=== PATIENT | female | born 1985 | race Caucasian/White ===

== ENCOUNTER → 2016-10-15 | Outpatient (CLI) | payer OTHER ==
[2016-10-15 12:19] LABS: Anisocytosis Moderate; CH 25.3; CHCM 31.1; HCT 34.7 % (34.0-46.0); HDW 2.98; HGB 10.6 gm/dL (11.4-16.0); Hypochromasia Moderate; MCHC 30.6 g/dL (31.0-37.0); Mean Platelet Volume 8.3; Microcytosis Slight; RBC 4.23 m/uL (3.80-5.40); RDW 20.2 % (11.5-15.5); WBC 7.6 k/uL (3.8-10.6)
== END | disposition home or self-care (01) ==
LOC: LABWHC1 09:00
PROVIDERS: ATTEND Obstetrics & Gynecology
DX: Z34.92 Encounter for supervision of normal pregnancy, unspecified, second trimester (principal); Z3A.00 Weeks of gestation of pregnancy not specified
CPT/HCPCS: 36415; 82950; 85027

== ENCOUNTER → 2016-12-17 | Outpatient (CLI) | payer OTHER ==
--- NOTE | 2016-12-17 12:06 | US ---
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 4 oz. WEIGHT PERCENTAGE BASED ON ESTABLISHED DATE: 80.5% HC/AC: 0.9 Normal FL/AC: 20 Normal HEART RATE: 145 bpm RHYTHM: Normal ANATOMY SEEN (within normal limits): Midline Falx Cavus Septi Pellucidi Four Chamber Heart Stomach Situs Nose / Lips Diaphragm Kidneys (bilateral) Bladder Three Vessel Cord ANATOMY NOT SEEN: Longitudinal Spine Transverse Spine Arms (bilateral) Legs (bilateral) Cord Insert Outflow tracts: LVOT/RVOT * Lateral Vent (< 1 cm) cm * Cisterna Magna (< 1.1 cm) cm * Nuchal Fold (< 0.6 cm) cm * Cerebellum (varies with age) cm Choroid Plexus (bilateral) Single live intrauterine gestation is present. Normal cephalad presentation to fetus is seen. There i s no ultrasound evidence for placenta previa. Amniotic fluid index is within normal limits. bio metry measurements are concordant felt within normal limits. Detailed anatomical survey is suboptimal due to advanced age. Multiple structures are not successfully evaluated as detailed above. Sev eral structures during real-time scanning and still images saved are within normal limits as noted ab ove. IMPRESSION: As above.
== END | disposition home or self-care (01) ==
LOC: RADUSWWP 09:35
PROVIDERS: ATTEND Obstetrics & Gynecology
DX: O36.63X0 Maternal care for excessive fetal growth, third trimester, not applicable or unspecified (principal); Z3A.34 34 weeks gestation of pregnancy
CPT/HCPCS: 76811

== ENCOUNTER 2017-01-02 15:52 | Outpatient (CLI) | payer OTHER ==
[2017-01-02 16:16] VITALS: BP 139/72; PULSE 86; RESP 17; TEMP 97.5
--- NOTE | 2017-01-06 13:26 | P.MSEPDOC ---
Presenting Problems - Arrival Data Date of Arrival on Unit: 01/02/17 Time of Arrival on Unit: 15:52 Mode of Transport: Ambulatory - Complaint OB-Reason for Admission/Chief Complaint: Possible Onset of Labor Medical History - Information : 4 Para: 2 Term: 2 : 0 Abortions: Spontaneous or Elective: 1 Number of Living Children: 2 - Gestational Age Expected Date of Delivery: 01/22/17 Gestational Age by MOHINDER (wks/days): 37 Weeks and 5 Days Review of Systems - Review of Systems Constitutional: No problems Breast: No problems ENT: No problems Cardiovascular: No problems Respiratory: No problems Gastrointestinal: No problems Genitourinary: No problems Musculoskeletal: No problems Neurological: No problems Skin: No problems Vital Signs - Temperature Temperature: 97.5 F Temperature Source: Temporal Artery Scan - Pulse Right Brachial Pulse Rate: 86 Pulse Assessment Method: Automatic Cuff - Respirations Respiratory Rate: 17 Oxygen Delivery Method: Room Air O2 Sat by Pulse Oximetry: 97 - Blood Pressure Right Arm Blood Pressure: 139/72 Blood Pressure Mean: 94 Blood Pressure Source: Automatic Cuff Medical Screen Scoring (Pre) - Cervical Exam Dilation: 1-3 cm = 1 Membranes: Intact - Uterine Contractions Frequency: > 5 minutes apart = 1 Duration: > 40 seconds = 2 Intensity: N/A - Maternal Vital Signs Maternal Temperature: N/A Maternal Blood Pressure: N/A Signs of Preeclampsia: N/A Maternal Respirations: N/A - Maternal Trauma Maternal Trauma: N/A - Assessment Baseline FHR: 140 Heart Rate - NICHD Category: Category I (Normal) = 0 NST: Reactive Position: N/A Station: N/A - Total Score Total Score (Pre): 4 - Level of Risk Level of Risk: Low (0-5) Physician Notification (Pre) - Physician Notified Physician Notified Date: 01/02/17 Physician Notified Time: 16:05 Physician/Practitioner Notifed:: Dr Almanzar Spoke With: Dr Almanzar New Order Received: Yes (reassess cervical exam in one hour) Medical Screen Scoring (Post) - Cervical Exam Dilation: 1-3 cm = 1 Membranes: Intact - Uterine Contractions Frequency: > 5 minutes apart = 1 Duration: > 40 seconds = 2 Intensity: N/A - Maternal Vital Signs Maternal Temperature: N/A Maternal Blood Pressure: N/A Signs of Preeclampsia: N/A Maternal Respirations: N/A - Maternal Trauma Maternal Trauma: N/A - Assessment Heart Rate: 140 Heart Rate - NICHD Category: Category I (Normal) = 0 NST: Reactive Position: N/A Station: N/A - Total Score Total Score (Post): 4 - Post Treatment Level of Risk Post Treatment Level of Risk: Low (0-5) Physician Notification (Post) - Notification Comment Comment: pt ok to dc home per previous order given from Dr Almanzar Disposition - Disposition OB Disposition: Discharge to home, Written follow up instructions reviewed Discharge Date: 01/02/17 Discharge Time: 17:40 I agree with the RN Medical Screening Exam: Yes Risk & Benefit of care provided described in d/c instruction: Yes Diagnosis: FALSE LABOR AT OR AFTER 37 COMPLETED WEEKS OF GESTATION
== END 2017-01-02 17:41 | disposition home or self-care (01) ==
LOC: FBPOP 15:52
PROVIDERS: ATTEND Obstetrics & Gynecology
DX: O47.1 False labor at or after 37 completed weeks of gestation (principal); Z3A.37 37 weeks gestation of pregnancy
CPT/HCPCS: 59025; 99213

== ENCOUNTER 2017-01-15 06:02 | Inpatient (IN) | payer OTHER ==
[2017-01-15] MEDS ORDERED: LIDOCAINE 1% (PF) 10 MG/ML (30 ML SDV) SQ PRN (06:04)
[2017-01-15] MEDS ORDERED: OXYTOCIN 10 UNIT/ML 1 ML VIAL IM PRN (06:04)
[2017-01-15] MEDS ORDERED: OXYTOCIN 20 UNITS/1000 ML NS 1,000 ML IV SCH ×2 (06:04→13:32)
[2017-01-15] MEDS ORDERED: TERBUTALINE 1 MG/ML VIAL SQ PRN (06:04)
[2017-01-15] MEDS ORDERED: METHYLERGONOVINE 0.2 MG/ML 1 ML AMP IM PRN (06:04)
[2017-01-15] MEDS ORDERED: CARBOPROST TROMETHAMINE 250 MCG/ML 1 ML AMP IM PRN (06:04)
[2017-01-15 06:16] VITALS: BMI 27.2
--- NOTE | 2017-01-15 06:21 | P.HPOB ---
History of Present Illness H&P Date: 01/15/17 Chief Complaint: Patient's presenting for requested induction of labor. This patient is a pleasant 31-year-old 4 para 2 female estimated date of confinement 01/22/2017 estimated gestational age 39-0/7 weeks who presents to labor and delivery for requested induction of labor. Patient's care has been uncomplicated with the exception of late to seek care. Patient does have a history of mild thrombocytopenia and chronic anemia. Review of Systems Constitutional: Denies chills, Denies fever Ears, nose, mouth and throat: Denies headache, Denies sore throat Cardiovascular: Denies chest pain, Denies shortness of breath Respiratory: Denies cough Gastrointestinal: Reports heartburn Genitourinary: Reports Menstruation: Reports amenorrhea Musculoskeletal: Denies myalgias Integumentary: Denies pruritus, Denies rash Neurological: Denies numbness, Denies weakness Psychiatric: Denies anxiety, Denies depression Past Medical History Additional Past Medical History / Comment(s): History of mild thrombocytopenia and chronic anemia. History of Any Multi-Drug Resistant Organisms: None Reported Additional Past Surgical History / Comment(s): Patient has had oral surgery and a D&C in the past. She is also had a breast biopsy. Past Anesthesia/Blood Transfusion Reactions: No Reported Reaction Smoking Status: Never smoker Past Drug Use History: None Reported Medications and Allergies Home Medications Medication Instructions Recorded Confirmed Type Pnv with Ca,No.72/Iron/FA 1 each PO DAILY 01/02/17 01/15/17 History [ Plus Tablet] Allergies Allergy/AdvReac Type Severity Reaction Status Date / Time No Known Allergies Allergy Verified 01/15/17 06:03 Exam - Vital Signs Vital signs: Intake and Output 01/14/17 01/14/17 01/15/17 14:59 22:59 06:59 Other: Weight 78.925 kg Patient Weight 01/15/17 06:59 Weight 78.925 kg - OBG Physical Exam Abdomen: bowel sounds normal, no diffuse tenderness, no bruit present, no guarding noted, no hepatomegaly, no splenomegaly, no mass Vulva: both: normal Vagina: normal moisture, no discharge Cervix: no lesion (Cervix in the office was 3 cm dilated.), no discharge Uterus: enlarged (Fundal height is 37 cm) Results blood work shows she is a positive, rubella immune, RPR nonreactive, hepatitis B negative, platelets were 143, Glucola was 94, group B strep was negative, ultrasounds have been normal. Assessment and Plan (1) Third trimester Narrative/Plan: This is a pleasant 4 para 2 female 39-0/7 weeks gestation who is admitted to labor and delivery for requested induction of labor. Patient has a history of mild thrombocytopenia. Plan is to check a CBC and proceed with induction of labor. We anticipate a vaginal delivery. Status: Acute (2) Elective induction of labor planned Status: Acute (3) Thrombocytopenia Status: Acute
[2017-01-15 06:22] LABS: Anisocytosis Slight; Basophils % (A) 0 %; CH 29.4; CHCM 33.9; Eosinophils # (A) 0.1 k/uL (0-0.7); Eosinophils % (A) 1 %; HCT 38.9 % (34.0-46.0); HDW 2.67; Luc % (Auto) 3; Lymphocytes # (A) 1.4 k/uL (1.0-4.8); Lymphocytes % (A) 18 %; MCH 29.2 pg (25.0-35.0); MCHC 33.5 g/dL (31.0-37.0); MCV 87.3 fL (80.0-100.0); Mean Platelet Volume 9.3; Monocytes # (A) 0.4 k/uL (0-1.0); Monocytes % (A) 6 %; Neutrophils # (A) 5.7 k/uL (1.3-7.7); Neutrophils % (A) 73 %; RBC 4.45 m/uL (3.80-5.40); RDW 16.7 % (11.5-15.5); WBC 7.7 k/uL (3.8-10.6); WBC (Perox) 7.66
[2017-01-15] MEDS: LACTATED RINGERS 1,000 ML IV SCH ×2 (06:28→11:46)
[2017-01-15] MEDS ORDERED: SODIUM CHLORIDE 0.9% 100 ML BAG ONE (11:25)
[2017-01-15] MEDS ORDERED: fentaNYL (PF) 50 MCG/ML 5 ML AMP ONE (11:25)
[2017-01-15] MEDS ORDERED: BUPIVACAINE (PF) 0.25% 30 ML VIAL ONE (11:25)
[2017-01-15] MEDS ORDERED: BISACODYL 10 MG SUPP RECTAL PRN (13:32)
[2017-01-15] MEDS ORDERED: ZOLPIDEM 5 MG TAB PO PRN (13:32)
[2017-01-15] MEDS ORDERED: LANOLIN CREAM 5 GM TUBE TOPICAL PRN (13:32)
[2017-01-15] MEDS ORDERED: IBUPROFEN 600 MG TAB PO PRN (13:32)
[2017-01-15] MEDS ORDERED: HYDROCORTISONE 2.5% RECTAL CREAM 30 GM TUBE RECTAL PRN (13:32)
[2017-01-15] MEDS ORDERED: diphenhydrAMINE 25 MG CAP PO PRN (13:32)
[2017-01-15] MEDS ORDERED: ACETAMINOPHEN TAB 325 MG TAB PO PRN (13:32)
[2017-01-15] MEDS ORDERED: diphenhydrAMINE 50 MG/ML 1 ML VIAL IVP PRN (13:32)
[2017-01-15] MEDS ORDERED: SIMETHICONE 80 MG CHEWABLE PO PRN (13:32)
[2017-01-15] MEDS ORDERED: Acetaminophen-Codeine 300-30mg TAB PO PRN ×2 (13:32)
[2017-01-15] MEDS ORDERED: BENZOCAINE/MENTHOL SPRAY 1 GM/SPRAY AEROSOL TOPICAL PRN (13:32)
[2017-01-15] MEDS ORDERED: WITCH HAZEL 1 EACH MED..PAD TOPICAL PRN (13:32)
--- NOTE | 2017-01-15 17:31 | P.PROBDLV ---
Vaginal Delivery Note - . Vaginal Delivery Note: Normal vaginal delivery viable female Apgars 9 and 9 delivery time is 1300 hrs. Please see dictated H&P for intimate details of this patient's admission. Brief summary this is a pleasant 31-year-old 4 para 2 female 39-0/7 weeks gestation who is admitted to labor and delivery for requested induction of labor. Patient is admitted and she is 3 cm dilated. She has artificial rupture membranes for clear fluid and Pitocin augmentation of labor per protocol. Patient's labor progresses normally and she does get an epidural for pain control. Patient thereafter gets quickly to complete pushes the head to the perineum. Posterior perineum is supported and a midline episiotomy is made. We then have controlled delivery of the 's head over the perineum. Mouth and nares are bulb suctioned. There is no evidence of a nuchal cord. With gentle downward traction we have delivery the anterior shoulder and posterior shoulder and rest this 's body. This is a vigorous viable female Apgars are 9 and 9 delivery time is 1300 hrs. After delivery of the the umbilical cord is doubly clamped and cut appears to be trivascular. The placenta spontaneously delivered intact. Inspection of the perineum shows a second-degree laceration which is repaired with 3-0 Vicryl in the usual fashion. Excellent reapproximation is noted. All counts are correct 3. There are no complications. and mother are stable delivery room.
[2017-01-15] MEDS: SENNOSIDES-DOCUSATE SODIUM 1 EACH TAB PO SCH ×2 (18:21→20:29)
--- NOTE | 2017-01-16 06:01 | P.PNOBGVD ---
Subjective - Subjective Patient reports: Reports appetite normal, Reports voiding normally, Reports pain well controlled, Reports ambulating normally : doing well Objective - Latest Vital Signs Latest vital signs: Vital Signs Temp Pulse Resp BP 01/16/17 05:11 98.1 F 72 16 120/52 01/16/17 00:00 98.0 F 72 18 120/65 01/15/17 20:00 98.5 F 88 18 120/55 01/15/17 18:00 98.1 F 112 H 16 133/78 01/15/17 15:33 95 16 113/80 01/15/17 15:03 85 16 114/72 01/15/17 14:33 94 16 117/63 01/15/17 14:18 98.1 F 87 16 119/70 01/15/17 14:03 100 16 111/70 01/15/17 13:48 90 16 126/61 01/15/17 13:33 98 16 118/55 01/15/17 06:12 97.1 F L 86 16 127/69 Intake and Output 01/15/17 01/15/17 01/16/17 14:59 22:59 06:59 Intake Total 619.6 Output Total 175 Balance 444.6 Intake: Intake, IV Titration 519.6 Amount Oxytocin 20 Units/1000 ml 519.6 Ns 1,000 ml @ 1 MILLIUNIT/MIN 3 mls/hr IV .Q24H ON LICENSE OF [facility] Rx#:[id number] Oral 100 Output: Estimated Blood Loss 175 Other: # Voids 2 3 - Exam Lungs: bilateral: normal Chest: Normal S1, Normal S2 Extremities: Present: normal Abdomen: Present: normal appearance, soft Uterus: Present: normal, firm - Labs Labs: Abnormal Lab Results - Last 24 Hours (Table) 01/15/17 Range/Units 06:10 RDW 16.7 H (11.5-15.5) % Plt Count 139 L (150-450) k/uL Assessment and Plan (1) Third trimester Narrative/Plan: day #1. Patient is resting without complaints and wishes to go home. Vital signs are stable she is afebrile. Uterus is firm nontender she's having normal lochia. My impression this is a normal course. Plan is to continue routine care and discharge home later today. Current Visit: Yes Status: Acute Code(s): Z33.1 - STATE, INCIDENTAL SNOMED Code(s): 05110594 (2) Elective induction of labor planned Current Visit: Yes Status: Acute Code(s): NUC2196 - SNOMED Code(s): 792519849 (3) Thrombocytopenia Current Visit: Yes Status: Acute Code(s): D69.6 - THROMBOCYTOPENIA, UNSPECIFIED SNOMED Code(s): 279201302
--- NOTE | 2017-01-16 06:03 | P.DS ---
Providers Date of admission: 01/15/17 06:02 Attending physician: Jacobo Almanzar Primary care physician: Baltazar Guzman - Discharge Diagnosis(es) (1) Third trimester Current Visit: Yes Status: Acute (2) Elective induction of labor planned Current Visit: Yes Status: Acute (3) Thrombocytopenia Current Visit: Yes Status: Acute Hospital Course: Please see dictated H&P for intimate details of this patient's admission. Brief summary this a pleasant 31-year-old 4 para 2 female 39-0/7 weeks gestation admitted to labor and delivery for elective induction of labor. Patient is admitted has uncomplicated induction of labor quickly goes on to have a vaginal delivery viable female infant. Please see dictated delivery note. day #1 patient without complaints she wishes to go home. Patient's felt be stable for discharge home follow up with me in 6 weeks. Call she has any fever, chills, excessive vaginal bleeding, and/or abdominal pain. Procedures: Normal vaginal delivery. Patient Condition at Discharge: Good Plan - Discharge Summary New Discharge Prescriptions: Acetaminophen-Codeine 300-30mg [Tylenol w/codeine #3] 1 - 2 each PO Q4HR PRN # 30 tab PRN Reason: Mild Pain exceeding Tylenol Ibuprofen [Motrin] 600 mg PO Q6HR PRN #40 tab PRN Reason: Mild Pain Or Fever >= 100.5 Discharge Medication List Pnv with Ca,No.72/Iron/FA [ Plus Tablet] 1 each PO DAILY 01/02/17 [ History] Acetaminophen-Codeine 300-30mg [Tylenol w/codeine #3] 1 - 2 each PO Q4HR PRN # 30 tab 01/16/17 [Rx] Ibuprofen [Motrin] 600 mg PO Q6HR PRN #40 tab 01/16/17 [Rx] Follow up Appointment(s)/Referral(s): Jacobo Almanzar MD [STAFF PHYSICIAN] - 6 Weeks Patient Instructions/Handouts: Vaginal Delivery (DC) Activity/Diet/Wound Care/Special Instructions: No intercourse or anything per vagina for 6 weeks. Please call if any fever, chills, excessive vaginal bleeding, and/or abdominal pain. Discharge Disposition: HOME SELF-CARE
[2017-01-16 10:17] VITALS: BP 123/72; PULSE 89; RESP 18; TEMP 97.9
[2017-01-16] MEDS: SENNOSIDES-DOCUSATE SODIUM 1 EACH TAB PO SCH (10:17)
== END 2017-01-16 14:45 | disposition home or self-care (01) | DRG 775 ==
LOC: 4FBP 06:02
PROVIDERS: ADMIT Obstetrics & Gynecology; ATTEND Obstetrics & Gynecology
PROC: 10907ZC Drainage of Amniotic Fluid, Therapeutic from Products of Conception, Via Natural or Artificial Opening (ICD-10-PCS; principal; 2017-01-15)
PROC: 10E0XZZ Delivery of Products of Conception, External Approach (ICD-10-PCS; principal; 2017-01-15)
PROC: 0KQM0ZZ Repair Perineum Muscle, Open Approach (ICD-10-PCS; principal; 2017-01-15)
PROC: 3E033VJ Introduction of Other Hormone into Peripheral Vein, Percutaneous Approach (ICD-10-PCS; principal; 2017-01-15)
PROC: 3E0R3CZ (ICD-10-PCS; principal; 2017-01-15)
PROC: 00HU33Z Insertion of Infusion Device into Spinal Canal, Percutaneous Approach (ICD-10-PCS; principal; 2017-01-15)
DX: O99.12 Other diseases of the blood and blood-forming organs and certain disorders involving the immune mechanism complicating childbirth (principal); D69.6 Thrombocytopenia, unspecified; Z37.0 Single live birth; O70.1 Second degree perineal laceration during delivery; Z3A.39 39 weeks gestation of pregnancy
CPT/HCPCS: 85025; 88307

== ENCOUNTER → 2018-12-01 | Outpatient (CLI) | payer BC ==
--- NOTE | 2018-12-01 11:01 | MM ---
Reason for exam: additional evaluation requested from abnormal screening. Last mammogram was performed less than 1 month ago. History: Family history of breast cancer in paternal grandmother at age 45, breast cancer in mother at age 55, and breast cancer in paternal aunt at age 50. Benign excisional biopsy of the right breast, 2014. Physical Findings: Nurse did not find any significant physical abnormalities on exam. MG Work Up Mamm w CAD RT Spot compression CC, spot compression MLO, and ML view(s) were taken of the right breast. Prior study comparison: November 30, 2018, bilateral MG screening mammo w CAD. December 01, 2014, bilateral MG diagnostic mammo w CAD DAV. The breast tissue is extremely dense which could obscure a lesion on mammography. There is a persistent right lateral asymmetry on spot views. Although this could be lactational change ultrasound will be performed. These results were verbally communicated with the patient and result sheet given to the patient on 12/01/18. ASSESSMENT: Incomplete: need additional imaging evaluation, BI-RAD 0 RECOMMENDATION: Ultrasound of the right breast.
--- NOTE | 2018-12-01 11:02 | USB ---
Reason for exam: additional evaluation requested from abnormal screening. History: Family history of breast cancer in paternal grandmother at age 45, breast cancer in mother at age 55, and breast cancer in paternal aunt at age 50. Benign excisional biopsy of the right breast, 2014. US Breast Workup Limited RT Right limited breast ultrasound including focal area of concern, retroareolar and axilla demonstrates a 4 x 3 x 4mm oval, cystic lesion at 9 o'clock. These results were verbally communicated with the patient and result sheet given to the patient on 12/01/18. ASSESSMENT: Probably benign, BI-RAD 3 RECOMMENDATION: Follow-up diagnostic mammogram of the right breast in 6 months.
== END | disposition home or self-care (01) ==
LOC: RADMAMWWP 09:26
PROVIDERS: ATTEND Family Medicine
DX: R92.8 Other abnormal and inconclusive findings on diagnostic imaging of breast (principal)
CPT/HCPCS: 77065

== ENCOUNTER → 2019-07-06 | Outpatient (CLI) | payer BC, OTHER ==
--- NOTE | 2019-07-06 09:30 | MM ---
Reason for exam: follow-up at short interval from prior study. Last mammogram was performed 7 months ago. History: Family history of breast cancer in paternal grandmother at age 45, breast cancer in mother at age 55, and breast cancer in paternal aunt at age 50. Benign excisional biopsy of the right breast, 2014. Physical Findings: Nurse Summary: 0.5cm nodule in the right breast at 9 o'clock and a 0.5cm nodule in the left breast at 12 o'clock (nurse kp). MG Diagnostic Mammo w CAD DAV Bilateral CC and MLO view(s) were taken. Prior study comparison: December 01, 2018, right breast MG work up mamm w CAD RT. November 30, 2018, bilateral MG screening mammo w CAD. The breast tissue is heterogeneously dense. This may lower the sensitivity of mammography. No new suspicious abnormality bilaterally. Right upper outer quadrant stable focal asymmetry marked by a BB was proven to represent a cyst in dense tissue on the prior ultrasound. These results were verbally communicated with the patient and result sheet given to the patient on 07/06/19. ASSESSMENT: Incomplete: need additional imaging evaluation, BI-RAD 0 RECOMMENDATION: Ultrasound of both breasts. (pain)
--- NOTE | 2019-07-06 09:38 | USB ---
Reason for exam: additional evaluation requested from abnormal screening. History: Family history of breast cancer in paternal grandmother at age 45, breast cancer in mother at age 55, and breast cancer in paternal aunt at age 50. Benign excisional biopsy of the right breast, 2014. US Breast Limited BILAT Right limited breast ultrasound including focal area of concern, retroareolar and axilla demonstrates no cystic or solid lesion seen. Left limited breast ultrasound including focal area of concern, retroareolar and axilla demonstrates no cystic or solid lesion seen. Scattered dense tissue. No suspicious sonographic finding. These results were verbally communicated with the patient and result sheet given to the patient on 07/06/19. ASSESSMENT: Negative, BI-RAD 1 RECOMMENDATION: Routine screening mammogram of both breasts in 1 year. Manage on a clinical basis with regard to right breast pain.
== END | disposition home or self-care (01) ==
LOC: RADMAMWWP 07:02
PROVIDERS: ATTEND Family Medicine
DX: R92.8 Other abnormal and inconclusive findings on diagnostic imaging of breast (principal)
CPT/HCPCS: 77066

== ENCOUNTER → 2021-01-11 | Outpatient (CLI) | payer BC ==
--- NOTE | 2021-01-15 09:47 | MM ---
Reason for exam: screening (asymptomatic). Last mammogram was performed 1 year and 6 months ago. History: Family history of breast cancer in paternal grandmother at age 45, breast cancer in mother at age 55, and breast cancer in paternal aunt at age 50. Benign excisional biopsy of the right breast, 2014. Physical Findings: A clinical breast exam by your physician is recommended on an annual basis and results should be correlated with mammographic findings. MG Screening Mammo w CAD Bilateral CC and MLO view(s) were taken. Prior study comparison: July 06, 2019, bilateral MG diagnostic mammo w CAD DAV. December 01, 2018, right breast MG work up mamm w CAD RT. The breast tissue is heterogeneously dense. This may lower the sensitivity of mammography. There is no discrete abnormality. No significant changes when compared with prior studies. ASSESSMENT: Negative, BI-RAD 1 RECOMMENDATION: Routine screening mammogram of both breasts in 1 year.
== END | disposition home or self-care (01) ==
LOC: RADMAMWWP 08:41
PROVIDERS: ATTEND Family Medicine
DX: Z12.31 Encounter for screening mammogram for malignant neoplasm of breast (principal); Z80.3 Family history of malignant neoplasm of breast
CPT/HCPCS: 77067

== ENCOUNTER → 2022-03-29 | Outpatient (CLI) | payer BC ==
--- NOTE | 2022-04-01 16:58 | MM ---
Reason for Exam: Screening (asymptomatic). Last mammogram was performed 1 year(s) and 2 month(s) ago. Patient History: Menarche at age 12. First Full-Term at age 24. 2015, Benign Excisional Biopsy on the right side. Paternal grandmother had breast cancer, age 45. Paternal aunt had breast cancer, age 50. Mother had breast cancer, age 55. Last menstrual period: 03/21/2022 Risk Values: Giovanna 5 year model risk: 1.2%. NCI Lifetime model risk: 23.0%. Prior Study Comparison: 12/01/2018 Right Diagnostic Mammogram, [facility]. 07/06/2019 Bilateral Diagnostic Mammogram, [facility]. 01/11/2021 Bilateral Screening Mammogram, [facility]. Tissue Density: The breast tissue is extremely dense which could obscure a lesion on mammography. Findings: Analyzed By CAD. No suspicious groups of microcalcifications, spiculated or lobular masses, architectural distortion or other secondary signs of malignancy are mammographically apparent. Overall Assessment: Benign, BI-RAD 2 Management: Screening Mammogram of both breasts in 1 year. A negative mammogram report should not preclude additional follow up of suspicious palpable abnormalities. Patient should continue monthly self breast exam. A clinical breast exam by your physician is recommended on an annual basis and results should be correlated with mammographic findings. Electronically signed and approved by: Christofer Lambert D.O. Radiologis
== END | disposition home or self-care (01) ==
LOC: RADMAMWWP 08:36
PROVIDERS: ATTEND Family Medicine
DX: Z12.31 Encounter for screening mammogram for malignant neoplasm of breast (principal); Z80.3 Family history of malignant neoplasm of breast
CPT/HCPCS: 77067

== ENCOUNTER → 2023-04-17 | Outpatient (CLI) | payer BC ==
--- NOTE | 2023-04-19 23:15 | MM ---
Reason for Exam: Screening (asymptomatic). Last mammogram was performed 1 year(s) and 1 month(s) ago. Patient History: Menarche at age 12. First Full-Term at age 24. 2015, Benign Excisional Biopsy on the right side. Paternal grandmother had breast cancer, age 45. Paternal aunt had breast cancer, age 50. Mother had breast cancer, age 55. Risk Values: Giovanna 5 year model risk: 1.4%. NCI Lifetime model risk: 22.9%. Prior Study Comparison: 07/06/2019 Bilateral Diagnostic Mammogram, [facility]. 01/11/2021 Bilateral Screening Mammogram, [facility]. 03/29/2022 Bilateral MG screening mammo w CAD, [facility]. Tissue Density: The breast tissue is heterogeneously dense. This may lower the sensitivity of mammography. Findings: Analyzed By CAD. Asymmetric density posterior inferior right breast is more defined. Further evaluation is recommended. Otherwise, areas of asymmetric density on both sides appear similar to various prior studies. Overall Assessment: Incomplete: need additional imaging evaluation, BI-RAD 0 Management: Special View Mammogram of the right breast. Diagnostic Breast Ultrasound of the right breast. Additional views right breast to include spot 3-D CC, spot 3-D MLO, and 3-D lateral views (including far posterior tissues). Additional whole right breast ultrasound (given patient's increased risk score and dense tissues). [facility] will attempt to contact patient to return for supplemental views and ultrasound if indicated. Electronically signed and approved by: Everardo Sanford M.D. Radiologist
== END | disposition home or self-care (01) ==
LOC: RADMAMWWP 11:07
PROVIDERS: ATTEND Family Medicine
DX: Z12.31 Encounter for screening mammogram for malignant neoplasm of breast (principal); Z80.3 Family history of malignant neoplasm of breast
CPT/HCPCS: 77067

== ENCOUNTER → 2023-04-23 | Outpatient (CLI) | payer BC ==
--- NOTE | 2023-04-23 09:24 | MM ---
Reason for Exam: Additional evaluation requested from abnormal screening. Last screening mammogram was performed less than 1 month ago. Patient History: Menarche at age 12. First Full-Term at age 24. Patient has history of breast feeding. 2015, Benign Excisional Biopsy on the right side. Paternal grandmother had breast cancer, age 45. Paternal aunt had breast cancer, age 50. Mother had breast cancer, age 55. Last menstrual period: 04/16/2023 Risk Values: Giovanna 5 year model risk: 1.4%. NCI Lifetime model risk: 22.9%. Prior Study Comparison: 12/01/2018 Right Diagnostic Mammogram, [facility]. 07/06/2019 Bilateral Diagnostic Mammogram, [facility]. 01/11/2021 Bilateral Screening Mammogram, [facility]. 03/29/2022 Bilateral MG screening mammo w CAD, [facility]. 04/17/2023 Bilateral MG screening mammo w CAD, [facility]. Tissue Density: Right: The breast tissue is extremely dense which could obscure a lesion on mammography. Findings: Analyzed By CAD. Under compression, no persistent suspicious spiculated or lobulated mass is evident. The asymmetric density appears to disperse normally on compression. Medial lateral view appears unremarkable. No suspicious groups of microcalcifications, spiculated or lobular masses, architectural distortion or other secondary signs of malignancy are mammographically apparent. Overall Assessment: Probably benign, BI-RAD 3 Management: Diagnostic Mammogram of the right breast in 6 months. A negative mammogram report should not preclude additional follow up of suspicious palpable abnormalities. Patient should continue monthly self breast exam. A clinical breast exam by your physician is recommended on an annual basis and results should be correlated with mammographic findings. Electronically signed and approved by: Christofer Lambert D.O. Radiologis
== END | disposition home or self-care (01) ==
LOC: RADMAMWWP 08:56
PROVIDERS: ATTEND Family Medicine
DX: R92.8 Other abnormal and inconclusive findings on diagnostic imaging of breast (principal); Z80.3 Family history of malignant neoplasm of breast
CPT/HCPCS: 77061; 77065

== ENCOUNTER → 2023-10-29 | Outpatient (CLI) | payer BC ==
--- NOTE | 2023-10-29 10:04 | MM ---
Reason for Exam: Follow-up at short interval from prior study. Last screening mammogram was performed 6 month(s) ago. Patient History: Menarche at age 12. First Full-Term at age 24. Patient has history of breast feeding. 2015, Benign Excisional Biopsy on the right side. Paternal grandmother had breast cancer, age 45. Paternal aunt had breast cancer, age 50. Mother had breast cancer, age 55. Last menstrual period: 10/24/2023 Risk Values: Giovanna 5 year model risk: 1.6%. NCI Lifetime model risk: 22.8%. Prior Study Comparison: 03/29/2022 Bilateral MG screening mammo w CAD, [facility]. 04/17/2023 Bilateral MG screening mammo w CAD, [facility]. 04/23/2023 Right MG 3D work up w/cad RT, [facility]. Tissue Density: Right: The breast tissue is heterogeneously dense. This may lower the sensitivity of mammography. Findings: Analyzed By CAD. The previous areas of asymmetric density have not persisted on the current exam. No significant change from prior exams. Overall Assessment: Benign, BI-RAD 2 Management: Screening Mammogram of both breasts in 6 months. SEE NOTE BELOW IN REGARDS TO PATIENT'S INCREASED LIFETIME RISK SCORE. Results were given to the patient verbally at the time of exam. Patient should continue monthly self-breast exams. A clinical breast exam by your physician is recommended on an annual basis. This exam should not preclude additional follow-up of suspicious palpable abnormalities. Note on Giovanna scores and lifetime risk: 1. A Giovanna score greater than 3% is considered moderate risk. If this is the case, consider specialist referral to assess eligibility for a risk reducing agent. 2. If overall lifetime risk for the development of breast cancer is 20% or higher, the patient may qualify for future screening with alternating mammogram and breast MRI. Electronically signed and approved by: Everardo Sanford M.D. Radiologist
== END | disposition home or self-care (01) ==
LOC: RADMAMWWP 09:27
PROVIDERS: ATTEND Family Medicine
DX: R92.331 Mammographic heterogeneous density, right breast (principal); Z80.3 Family history of malignant neoplasm of breast
CPT/HCPCS: 77061; 77065

== ENCOUNTER → 2024-05-21 | Outpatient (CLI) | payer BC ==
--- NOTE | 2024-05-21 10:02 | XR ---
EXAMINATION TYPE: XR Hip Complete RT DATE OF EXAM: 05/21/2024 CLINICAL HISTORY: pain TECHNIQUE: AP and frogleg views of the right hip are obtained. COMPARISON: None. FINDINGS: There is no acute fracture/dislocation evident. The joint space appears within normal li mits. The overlying soft tissue appears unremarkable. IMPRESSION: 1. There is no acute fracture or dislocation. ICD 10 NO FRACTURE, INITIAL EVALUATION
== END | disposition home or self-care (01) ==
LOC: RADXRMAIN 09:30
PROVIDERS: ATTEND Family Medicine
DX: M25.551 Pain in right hip (principal)
CPT/HCPCS: 73502

== ENCOUNTER → 2024-08-10 | Outpatient (CLI) | payer BC ==
--- NOTE | 2024-08-11 17:04 | MM ---
Reason for Exam: Screening (asymptomatic). Last mammogram was performed 1 year(s) and 4 month(s) ago. Patient History: Menarche at age 12. First Full-Term at age 24. Patient has history of breast feeding. 2015, Benign Excisional Biopsy on the right side. Paternal grandmother had breast cancer, age 45. Paternal aunt had breast cancer, age 50. Mother had breast cancer, age 55. Last menstrual period: 07/23/2024 Risk Values: Giovanna 5 year model risk: 1.7%. NCI Lifetime model risk: 22.6%. Prior Study Comparison: 04/17/2023 Bilateral MG screening mammo w CAD, [facility]. 04/23/2023 Right MG 3D work up w/cad RT, [facility]. 10/29/2023 Right MG 3D diag mammo w/cad RT, [facility]. Tissue Density: The breasts are heterogeneously dense, which may obscure small masses. Findings: Analyzed By CAD. There is no suspicious group of microcalcifications or new suspicious mass in either breast. Overall Assessment: Negative, BI-RAD 1 Management: Screening Mammogram of both breasts in 1 year. SEE NOTE BELOW IN REGARDS TO PATIENT'S INCREASED LIFETIME RISK SCORE. Patient should continue monthly self-breast exams. A clinical breast exam by your physician is recommended on an annual basis. This exam should not preclude additional follow-up of suspicious palpable abnormalities. Note on Giovanna scores and lifetime risk: 1. A Giovanna score greater than 3% is considered moderate risk. If this is the case, consider specialist referral to assess eligibility for a risk reducing agent. 2. If overall lifetime risk for the development of breast cancer is 20% or higher, the patient may qualify for future screening with alternating mammogram and breast MRI. [facility], , 08/11/2024 5:01 PM. Electronically signed and approved by: Everardo Sanford M.D. Radiologist
== END | disposition home or self-care (01) ==
LOC: RADMAMWWP 08:39
PROVIDERS: ATTEND Family Medicine
DX: Z12.31 Encounter for screening mammogram for malignant neoplasm of breast (principal); Z80.3 Family history of malignant neoplasm of breast; R92.333 Mammographic heterogeneous density, bilateral breasts
CPT/HCPCS: 77063; 77067